=== PATIENT | male | born 1970 | race Caucasian/White ===

== ENCOUNTER 2018-07-21 20:23 | Emergency (ER) | payer MEDICAID ==
[~2018-07-21] VITALS: Ht 170.2 cm; Wt 72.7 kg
[2018-07-21 20:25] VITALS: BP 131/76
== END 2018-07-22 00:44 | disposition left against medical advice (07) ==
LOC: ER 20:32
DX: Z53.21 Procedure and treatment not carried out due to patient leaving prior to being seen by health care provider (principal)

== ENCOUNTER 2020-04-01 19:51 | Emergency (ER) | payer MEDICAID ==
[~2020-04-01] VITALS: Ht 165.1 cm; Wt 59.0 kg
[2020-04-01] MEDS ORDERED: ACETAMINOPHEN 500MG TABLET PO ONE (21:15)
[2020-04-01 23:17] VITALS: BP 131/61
== END 2020-04-01 23:18 | disposition home or self-care (01) ==
LOC: ER 19:51
DX: U07.1 COVID-19 (principal)
CPT/HCPCS: 99283